=== PATIENT | female | born 1985 | race Caucasian/White ===

== ENCOUNTER 2021-10-21 15:34 | Emergency (ER) | payer OTHER ==
[~2021-10-21] VITALS: Ht 167.6 cm; Wt 134.7 kg
[2021-10-21 16:10] VITALS: BP_SYST 147
--- NOTE | 2021-10-21 16:10 | NUR ---
PT TRIAGED AND PLACED IN WAITING ROOM FOR AVAILABLE BED IN MAIN ED
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
--- NOTE | 2021-10-21 16:45 | NUR ---
Dr Whitman evaluating patient at bedside
[2021-10-21] MEDS ORDERED: IBUP-1971 PO (17:05)
[2021-10-21 17:16] VITALS: BP_SYST 142
--- NOTE | 2021-10-21 17:17 | NUR ---
Patient given written and verbal discharge instructions and verbalizes understanding. ER MD discussed with patient the results and treatment provided. Patient in stable condition. ID arm band removed. Rx of IBUPROFEN given. Patient educated on pain management and to follow up with PMD. Pain Scale 0/10. Opportunity for questions provided and answered. Medication side effect fact sheet provided.
== END 2021-10-21 17:17 | disposition home or self-care (01) ==
LOC: SED 15:34
DX: S29.011A Strain of muscle and tendon of front wall of thorax, initial encounter (principal); S16.1XXA Strain of muscle, fascia and tendon at neck level, initial encounter; S30.1XXA Contusion of abdominal wall, initial encounter; S20.312A Abrasion of left front wall of thorax, initial encounter; V49.49XA Driver injured in collision with other motor vehicles in traffic accident, initial encounter; Y93.89 Activity, other specified; Y92.89 Other specified places as the place of occurrence of the external cause; Y99.8 Other external cause status
CPT/HCPCS: 99282